=== PATIENT | male | born 1955 | race Caucasian/White ===

== ENCOUNTER 2017-01-29 13:56 | Emergency (ER) | payer OTHER ==
[~2017-01-29] VITALS: Wt 101.6 kg
[~2017-01-29 13:56] MED LIST: ADVAIR 500/501 E1 PO; ALBUTEROL0.09 MG/A2 IH; ASPIRIN EC325 MG PO; CEFTRIAXONE1 GM IJ; CILOXAN 5 ML5 M1 OT; COREG3.125 MG PO; D-1000 185 MG-11 TAB PO; FLONASE0.05 MG/AC NS; HYDR25T PO; HYDROCODONE BIT1 T11 PO; LEVAQUIN 500 M500 MG PO; LEVOFLOXACIN500 MG PO; LIPITOR10 MG PO; MOMETASONE FUROA0.1% T; NORCO 10-325 T1 EACH PO; OXYGEN; PREDNISONE10 MG PO; PRILOSEC20 MG PO; SPIRIVA -- 3018 MCG INH; TOBRADEX 0.1%-2.5 M1 OT; VIBRAMYCIN100 MG PO; VICODIN ES 7501 TA1 PO
[2017-01-29 14:43] LABS: BILIRUBIN NEGATIVE (NEGATIVE); BLOOD 2+ (NEGATIVE); CLARITY SL CLOUDY (CLEAR); COLOR YELLOW (YELLOW); GLUCOSE NEGATIVE (NEGATIVE); KETONE NEGATIVE (NEGATIVE); LEUKO ESTERASE 2+ (NEGATIVE); NITRITE NEGATIVE (NEGATIVE); PROTEIN TRACE (NEGATIVE); SPECIFIC GRAVITY 1.015 (1.005-1.030); UROBILINOGEN 0.2 E.U./dl (0.2-1.0)
[2017-01-29 14:51] LABS: BACTERIA 2+; EPITHELIAL CELLS 0-2; MUCOUS TRACE; URINE REFLEX COMMENT YES (NO); WBC 16-20 wbc/hpf (0-5)
[2017-01-29] MEDS ORDERED: CIPRO250 MG PO (15:05)
== END 2017-01-29 14:49 | disposition home or self-care (01) ==
LOC: ED 13:56
PROVIDERS: Nurse Practitioner Family
DX: N30.01 Acute cystitis with hematuria (principal); K21.9 Gastro-esophageal reflux disease without esophagitis; F17.200 Nicotine dependence, unspecified, uncomplicated; Z99.81 Dependence on supplemental oxygen; I10 Essential (primary) hypertension; E78.5 Hyperlipidemia, unspecified; J44.9 Chronic obstructive pulmonary disease, unspecified; Z85.51 Personal history of malignant neoplasm of bladder

== ENCOUNTER → 2017-02-10 | Outpatient (CLI) | payer OTHER ==
[~2017-02-10] MED LIST changes: +CIPRO250 MG PO; +ECOTRIN81 M1 PO
== END | disposition home or self-care (01) ==
LOC: LAB 12:48
DX: N39.0 Urinary tract infection, site not specified (principal)

== ENCOUNTER → 2017-03-25 | Outpatient (CLI) | payer OTHER ==
[~2017-03-25] MED LIST changes: +NORCO 5-325 TA1 EACH PO
[2017-03-25 13:15] VITALS: BP 98/68
[2017-03-25 13:45] VITALS: BP 105/64
[2017-03-25 14:00] VITALS: BP 101/62
[2017-03-25 14:31] VITALS: BP 90/52
[2017-03-25 15:54] VITALS: BP 109/60
[2017-03-25 16:40] VITALS: BP 97/49
== END | disposition home or self-care (01) ==
LOC: TRNFUSION 02:27
DX: C67.9 Malignant neoplasm of bladder, unspecified (principal)